=== PATIENT | female | born 1940 | race Caucasian/White ===

== ENCOUNTER → 2016-06-23 | Day surgery (SDC) | payer MEDICARE, BC ==
[~2016-06-23] VITALS: Ht 160 cm; Wt 45.6 kg
[~2016-06-23] MED LIST: ADVAIR 250-501 EACH INH; ALPHAGAN P5 ML OPHTH; AREDS 2 PO; BENADRYL25 MG PO; LEVOTHROID (SY50 MCG PO; MEVACOR20 MG PO; PRESERVISION A1 EACH PO; PROVENTIL OR V6.7 GM INH; VITAMIN D-32000 UNI1 PO; XALATAN2.5 ML OPHTH; ZOLOFT25 MG PO
--- NOTE | ~2016-06-23 | OR ---
[facility] 76 [facility] [address] ROOM: [place] [address] LOCATION: GEND ADMIT DATE: 06/23/2016 OR/Procedure Report DISCHARGE DATE: FAMILY PHYSICIAN: Ephraim Smith MD ATTENDING PHYSICIAN: AMINAH DESIR SURGEON: Aminah Desir MD DATE OF PROCEDURE: 06/23/2016 PROCEDURE TRAVELING CRANE OPERATOR: Katerin Julien, explosive ordnance disposal technician. PROCEDURES PERFORMED: Bronchoscopy with endobronchial ultrasound and fine-needle aspirations of paratracheal nodes. INDICATIONS AND PRE-PROCEDURE DIAGNOSES: 1. Mediastinal adenopathy. 2. Lung nodule. 3. Tobacco abuse. POST-PROCEDURE DIAGNOSES: 1. Mediastinal adenopathy. 2. Lung nodule. 3. Tobacco abuse. CONSENT: Consent was obtained from the patient after all the indications, risks, benefits, and alternatives were explained at length. The patient verbalized understanding and signed an informed consent. DESCRIPTION OF PROCEDURE: The patient was taken to the Endoscopy Suite where she was intubated by the Anesthesia team. General anesthesia was started. Local anesthesia was obtained with lidocaine solution instillations. FINDINGS: I started with basic diagnostic bronchoscopy that revealed small-to- moderate amount of clear secretions in both bronchial trees without any endobronchial lesions down to the subsegmental levels. The diagnostic bronchoscope was withdrawn, and the bronchoscope with endobronchial ultrasound was advanced through the endotracheal tube. The patient had a conglomerate of large nodes in the paratracheal region with large nodes in the right hilar area. Using direct ultrasound visualization, I performed multiple fine needle aspirates from the paratracheal nodes. The cytology telecom field technician was present in the room and confirmed the presence of lymph node material with suspicious cells. I performed additional fine needle aspirates to obtain adequate material for immunohistochemistry. The bronchoscope with endobronchial ultrasound was removed and a diagnostic bronchoscope was advanced again through the endotracheal tube. There was no evidence of active bleeding at the sites where PATIENT'S NAME: CHELO MCCLENDON [facility] AGE: 76 Y [address] ROOM: [place] [address] LOCATION: GEND ADMIT DATE: 06/23/2016 OR/Procedure Report DISCHARGE DATE: FAMILY PHYSICIAN: Ephraim Smith MD ATTENDING PHYSICIAN: AMINAH DESIR the fine-needle aspirates were performed. The diagnostic bronchoscope was withdrawn, and the patient was returned to the Anesthesia team for further management. COMPLICATIONS: None. ESTIMATED BLOOD LOSS: Less than 5 mL. SPECIMENS: The fine-needle aspirates will be sent for cytology and pathology evaluation. AMINAH DESIR MD RFN/modl /[id number] d: 06/23/162038 t: 06/25/16 1303, OPERATIVE SUMMARY
== END | disposition disaster alternative care site (69) ==
LOC: GPOC 06-20 14:00 → GEND 11:11 → GPOC 14:00
PROC: 07974ZX Drainage of Thorax Lymphatic, Percutaneous Endoscopic Approach, Diagnostic (ICD-10-PCS; principal; 2016-06-23)
DX: R59.0 Localized enlarged lymph nodes (principal); R91.1 Solitary pulmonary nodule; I71.4 Abdominal aortic aneurysm, without rupture; J43.9 Emphysema, unspecified; F17.200 Nicotine dependence, unspecified, uncomplicated
CPT/HCPCS: J7030

== ENCOUNTER → 2016-07-25 | Outpatient (CLI) | payer MEDICARE, BC | END | disposition disaster alternative care site (69) | LOC: GKIC 10:48 → GRAD 15:00 | DX: C34.12 Malignant neoplasm of upper lobe, left bronchus or lung (principal); J98.59 Other diseases of mediastinum, not elsewhere classified; R91.1 Solitary pulmonary nodule | CPT/HCPCS: A9552 ==